=== PATIENT | female | born 1950 | race Caucasian/White ===

== ENCOUNTER 2016-11-08 15:40 | Emergency (ER) | payer MEDICARE, OTHER ==
--- NOTE | ~2016-11-08 | ER ---
PATIENT'S NAME: [facility] AGE: 66 Y [address] ROOM: [place], [place] [address] LOCATION: [facility] ADMIT DATE: 11/08/2016 ER/Outpatient Report DISCHARGE DATE: 11/08/2016 FAMILY PHYSICIAN: Lori Garcias ATTENDING PHYSICIAN: Kody Venegas Admission date and time are documented on the medical record. I saw the patient at 1600 hours. CHIEF COMPLAINT: Fall, left wrist, shoulder injury. HISTORY OF PRESENT ILLNESS: This patient is a 66-year-old female who was stepping up on a curb, slipped, her foot slipped on the wet cement and she fell, kind of grazed the left-side of her head and then fell to the cement injuring her left wrist, left shoulder. Brought to the emergency room by private car with friends for evaluation. She has pain and little bit of deformity in the left wrist. Elbow and shoulder move okay, but she is having a little bit of pain in her shoulders similar to where she has thought she may have jammed it. No open wounds on the left arm. She has an abrasion to the left knee, but she bears weight and moves her hips, knees, and ankles okay. No chest pain or shortness of breath. No abdominal pain, nausea, vomiting, or diarrhea. No incontinence. No urinary symptoms. Other than the left knee, left wrist, and left shoulder, no other joint or muscle swelling, redness, or pain. Skin abrasion of left knee; otherwise, no other skin manifestations. No lightheadedness, dizziness, syncope, or near syncope. No recent colds, coughs, flus, fever, chills, or sweats. No headache, eyes, ears, nose, throat, neck, or spine pain. She does have a history of zfl-nimaevc-btdrglxaw diabetes mellitus. No other endocrine problems, neuro changes, or psych issues. HOME MEDICATIONS: See attached medication list. ALLERGIES: LATEX. SOCIAL HISTORY: Nonsmoker, occasional intake of alcohol. SIGNIFICANT PAST MEDICAL HISTORY: Jip-umdgugq-rgyxmxscv diabetes mellitus, hypertension, remote history of seizures, and exogenous obesity. PATIENT'S NAME: [facility] AGE: 66 Y [address] ROOM: [place], [place] [address] LOCATION: [facility] ADMIT DATE: 11/08/2016 ER/Outpatient Report DISCHARGE DATE: 11/08/2016 FAMILY PHYSICIAN: Lori Garcias ATTENDING PHYSICIAN: Kody Venegas OPERATIONS: None. REVIEW OF SYSTEMS: All systems reviewed by me are negative with the exception of those discussed in the history of present illness. PHYSICAL EXAMINATION: VITAL SIGNS: Temperature 97.5, tympanic, pulse 74, respirations 16, blood pressure 185/86, and O2 sat on room air is 95%. HEAD: Normocephalic. The patient had a little bit of redness in the left temporal frontal scalp forehead area. No facial injuries. EYES, EARS, NOSE, AND THROAT: Clear. NECK: Mild stiffness in the right-side of her neck. Range of motion is full. SPINE: Negative. LUNGS: Clear. HEART: Regular. NEUROVASCULAR: Intact. EXTREMITIES: The patient has deformity of the left wrist with pain with any movement. Shoulder moves well and left elbow moves well. She has abrasion to the anterior surface of the left knee. NEUROVASCULAR: Intact. IMAGING DATA: X-ray of the left shoulder showed no fracture, dislocation, or separation. X- ray of the left wrist shows a comminuted impacted intraarticular fracture, minimally if any displaced of the distal left radius. We will review with the radiologist. EMERGENCY DEPARTMENT COURSE: I did have the Orthopedic Surgeon Dr. Pearce look at the film and he suggested put her in a sugar-tong splint and to be followed up in 7 to 10 days. IMPRESSION: 1. Fall with bruised left shoulder, fractured distal left radius, abrasion, left anterior knee. 2. Seb-qsynsfc-wehyxjvet diabetes mellitus. 3. Hypertension. PLAN: Did place the patient in a sugar-tong splint with 3-inch casting, wrapped with 4-inch Ilan wraps x2. The patient placed in a sling. Dismissed home. Ice, elevation intermittently as needed. Continue present home medications and care. Lena as needed for pain. See personal physician as needed. See PATIENT'S NAME: [facility] AGE: 66 Y [address] ROOM: [place], [place] [address] LOCATION: [facility] ADMIT DATE: 11/08/2016 ER/Outpatient Report DISCHARGE DATE: 11/08/2016 FAMILY PHYSICIAN: Lori Garcias ATTENDING PHYSICIAN: Kody Venegas Orthopedic Surgeon, Dr. Pearce, 7 to 10 days for followup exam and re-x-ray left wrist. Discussion ensued with the patient concerning my findings and recommendations, she understands. MD MEGHANA LANTIGUA/dariuszl /[id number] d: 11/09/162 t: 11/09/16 0633, OUTPATIENT REPORT
== END 2016-11-08 18:12 | disposition disaster alternative care site (69) ==
LOC: GACC 15:40
PROC: 2W3DX1Z Immobilization of Left Lower Arm using Splint (ICD-10-PCS; principal; 2016-11-08)
DX: S52.572A Other intraarticular fracture of lower end of left radius, initial encounter for closed fracture (principal); S40.012A Contusion of left shoulder, initial encounter; S80.212A Abrasion, left knee, initial encounter; E11.9 Type 2 diabetes mellitus without complications; I10 Essential (primary) hypertension; E66.9 Obesity, unspecified; Z91.040 Latex allergy status; Z79.899 Other long term (current) drug therapy; Z79.84 Long term (current) use of oral hypoglycemic drugs; W01.0XXA Fall on same level from slipping, tripping and stumbling without subsequent striking against object, initial encounter; Z23 Encounter for immunization